=== PATIENT | male | born 1970 | race Caucasian/White ===

== ENCOUNTER 2016-10-26 13:41 | Emergency (ER) | payer OTHER, BC ==
[2016-10-26] MEDS ORDERED: BUPIVACAINE 0.5% PF 30 ML VIAL ONE (15:50)
[2016-10-26] MEDS ORDERED: BUPIVACAINE 0.5% PF 30 ML VIAL SUBQ STA (16:29)
== END 2016-10-26 17:17 | disposition home or self-care (01) ==
DX: S61.220A Laceration with foreign body of right index finger without damage to nail, initial encounter (principal); W29.8XXA Contact with other powered hand tools and household machinery, initial encounter

== ENCOUNTER 2016-11-05 | Emergency (ER) | payer OTHER, BC | END 2016-11-05 08:27 | disposition home or self-care (01) ==

== ENCOUNTER 2016-11-08 09:54 | Emergency (ER) | payer OTHER, BC | END 2016-11-08 12:35 | disposition home or self-care (01) | DX: T81.30XA Disruption of wound, unspecified, initial encounter (principal); Y84.8 Other medical procedures as the cause of abnormal reaction of the patient, or of later complication, without mention of misadventure at the time of the procedure; S61.210D Laceration without foreign body of right index finger without damage to nail, subsequent encounter; X58.XXXD Exposure to other specified factors, subsequent encounter; F17.200 Nicotine dependence, unspecified, uncomplicated ==

== ENCOUNTER 2016-11-22 08:30 | Emergency (ER) | payer OTHER, BC ==
[2016-11-22] MEDS ORDERED: TETANUS/DIPHTHERIA/PERTUSSIS 0.5 ML SYRINGE IM ONE (09:09)
== END 2016-11-22 09:27 | disposition home or self-care (01) ==
DX: S61.210D Laceration without foreign body of right index finger without damage to nail, subsequent encounter (principal); X58.XXXD Exposure to other specified factors, subsequent encounter; Z48.02 Encounter for removal of sutures; F17.200 Nicotine dependence, unspecified, uncomplicated

== ENCOUNTER 2017-03-12 21:44 | Emergency (ER) | payer BC ==
[2017-03-12] MEDS ORDERED: GLUCAGON 1 MG/ML VIAL IVP STA (22:05)
[2017-03-12] MEDS ORDERED: diazePAM INJ 5 MG/ML SYRINGE IVP STA ×2 (22:05→22:38)
[2017-03-12] MEDS ORDERED: SODIUM CHLORIDE 0.9% 1,000 ML IV ONE (22:05)
[2017-03-12] MEDS ORDERED: GLUCAGON 1 MG/ML VIAL ONE (22:08)
[2017-03-12] MEDS ORDERED: diazePAM INJ 5 MG/ML SYRINGE ONE ×2 (22:08→22:49)
[2017-03-12] MEDS ORDERED: WATER FOR INJECTION,STERILE 10 ML ONE (22:08)
[2017-03-12 22:21] LABS: BASOPHILS # (AUTO) 0.1 10^3/uL (0.0-0.1); BASOPHILS % (AUTO) 1.2 %; EOSINOPHILS # (AUTO) 0.3 10^3/uL (0.0-0.7); EOSINOPHILS % (AUTO) 2.6 %; HCT - HEMATOCRIT 48.2 % (42.0-52.0); HGB - HEMOGLOBIN 16.4 g/dL (14.0-18.0); LYMPHOCYTES # (AUTO) 2.5 10^3/uL (1.5-3.5); LYMPHOCYTES % (AUTO) 23.3 %; MEAN CORPUSCULAR HEMOGLOBIN 31.4 pg (27.0-31.0); MEAN CORPUSCULAR VOLUME 92.5 fL (80.0-94.0); MEAN PLATELET VOLUME 7.4 fL (7.4-11.4); MONOCYTES # (AUTO) 0.8 10^3/uL (0.0-1.0); MONOCYTES % (AUTO) 7.3 %; NEUTROPHILS % (AUTO) 65.6 %; RED BLOOD COUNT 5.21 10^6/uL (4.70-6.10); RED CELL DISTRIBUTION WIDTH 13.2 % (12.0-15.0); UNCORRECTED WHITE BLOOD COUNT 10.6 x10^3/uL; WHITE BLOOD COUNT 10.6 x10^3/uL (4.8-10.8)
[2017-03-12 22:32] LABS: BILIRUBIN,TOTAL 0.7 mg/dL (0.2-1.0); CALCIUM 9.2 mg/dL (8.5-10.3); POTASSIUM 3.7 mmol/L (3.5-5.0); TOTAL PROTEIN 7.1 g/dL (6.7-8.2)
--- NOTE | 2017-03-12 22:46 | ED Physician Documentation ---
PD HPI NVD - Stated complaint Stated Complaint: FOOD IN THROAT - Chief complaint Chief Complaint: Abd Pain - History obtained from History obtained from: Patient - History of Present Illness Timing - onset: How many hours ago (1) Timing - duration: Hours (1) Timing - details: Abrupt onset (eating chicken breast he had cut up into a soup and felt it get stuck in esophagus. No history of reflux.) Associated symptoms: Other (food caught in upper esophagus and unable to swallow saliva. Normal breathing.) Contributing factors: Alcohol use. No: Sick contact, Bad food, Travel, Recent antibiotics, Anticoagulated, Diabetes Similar symptoms before: Has not had sx before Recently seen: Not recently seen Review of Systems Constitutional: denies: Fever, Chills Nose: denies: Rhinorrhea / runny nose, Congestion Throat: denies: Sore throat Cardiac: denies: Chest pain / pressure, Palpitations Respiratory: denies: Dyspnea, Cough, Wheezing GI: reports: Other (denies regular heartburn nor reflux.). denies: Abdominal Pain, Vomiting, Diarrhea : denies: Dysuria, Frequency Neurologic: denies: Generalized weakness, Focal weakness, Numbness, Near syncope , Altered mental status, Headache PD PAST MEDICAL HISTORY - Past Medical History Cardiovascular: None Respiratory: None Neuro: None Endocrine/Autoimmune: None GI: None - Past Surgical History Past Surgical History: Yes - Present Medications Home Medications: Ambulatory Orders Medication Instructions Recorded Confirmed No Known Home Medications [No 10/26/16 11/05/16 Known Home Medications] - Allergies Allergies/Adverse Reactions: Allergies Allergy/AdvReac Type Severity Reaction Status Date / Time No Known Drug Allergies Allergy Verified 11/05/16 08:07 - Social History Does the pt smoke?: Yes Smoking Status: Current every day smoker Does the pt drink ETOH?: No Does the pt have substance abuse?: Yes - Family History Family history: reports: Non contributory - Immunizations Immunizations are current?: No Immunizations: TDAP current <10years PD ED PE NORMAL - Vitals Vital signs reviewed: Yes - General General: Alert and oriented X 3, Well developed/nourished, Other (Normal voice and unlabored breathing. he is spitting up clear saliva every few minutes and seems uncomfortable with trying to swallow. ) - HEENT HEENT: Pharynx benign - Neck Neck: Supple, no meningeal sign, No adenopathy - Cardiac Cardiac: RRR, No murmur - Respiratory Respiratory: Clear bilaterally - Abdomen Abdomen: Soft, Non tender - Derm Derm: Normal color, Warm and dry - Extremities Extremities: Normal ROM s pain, No edema, No calf tenderness / cord - Neuro Neuro: Alert and oriented X 3, No motor deficit, Normal speech Results - Vitals Vitals: Vital Signs - 24 hr 03/12/17 03/12/17 21:53 23:57 Temperature 37.0 C Heart Rate 96 87 Respiratory 16 18 Rate Blood Pressure 125/81 H 128/77 O2 Saturation 99 97 Oxygen O2 Source Room air - Labs Labs: Laboratory Tests 03/12/17 03/12/17 22:13 22:13 WBC 10.6 RBC 5.21 Hgb 16.4 Hct 48.2 MCV 92.5 MCH 31.4 H MCHC 34.0 RDW 13.2 Plt Count 234 MPV 7.4 Neut # 7.0 H Lymph # 2.5 [place] # 0.8 Eos # 0.3 Baso # 0.1 Absolute Nucleated RBC 0.00 Nucleated RBCs 0.0 Sodium 140 Potassium 3.7 Chloride 105 Carbon Dioxide 27 Anion Gap 8.0 BUN 13 Creatinine 1.0 Estimated GFR (MDRD) 80 L Glucose 92 Calcium 9.2 Total Bilirubin 0.7 AST 20 ALT 21 Alkaline Phosphatase 60 Total Protein 7.1 Albumin 4.7 Globulin 2.4 Albumin/Globulin Ratio 2.0 Lipase 32 PD MEDICAL DECISION MAKING - ED course Complexity details: re-evaluated patient (no improvement with IV fluids/ meds of Glucagon and Diazepam. Still spitting up clear saliva every few minutes. Normal voice and breathing still. ), d/w care consultant (Dr. Pardo, Surgery front end developer designer, who says she does not do EGD for esophageal FB removal. Refers to GI. Talked with Dr. Terry, GI at [facility]. ) Departure - Departure Disposition: 02 Transfer Acute Care Hosp Clinical Impression: Food impaction of esophagus Qualifiers: Encounter type: initial encounter Qualified Code(s): T18.128A - Food in esophagus causing other injury, initial encounter Condition: Stable Discharge Date/Time: 03/12/17 23:57
[2017-03-13 00:05] VITALS: BP 128/77
== END 2017-03-12 23:57 | disposition short-term general hospital (02) ==
LOC: ED 21:44
DX: T18.128A Food in esophagus causing other injury, initial encounter (principal); X58.XXXA Exposure to other specified factors, initial encounter; F17.200 Nicotine dependence, unspecified, uncomplicated
CPT/HCPCS: 36415; 80053; 83690; 85025; 96374; 96375; 96376; 99283; 99284

== ENCOUNTER 2017-03-13 | Outpatient (CLI) | payer BC | END 2017-03-13 00:01 | disposition short-term general hospital (02) | LOC: EMS | PROVIDERS: ATTEND Surgery | DX: T18.128A Food in esophagus causing other injury, initial encounter (principal); R13.10 Dysphagia, unspecified; X58.XXXA Exposure to other specified factors, initial encounter | CPT/HCPCS: A0425; A0428 ==

== ENCOUNTER 2017-05-07 20:09 | Emergency (ER) | payer BC ==
[2017-05-07 20:18] VITALS: BP 110/72
== END 2017-05-07 20:35 | disposition left against medical advice (07) ==
LOC: ED 20:09
DX: T17.228A Food in pharynx causing other injury, initial encounter (principal); X58.XXXA Exposure to other specified factors, initial encounter; Z53.21 Procedure and treatment not carried out due to patient leaving prior to being seen by health care provider

== ENCOUNTER 2017-08-31 16:03 | Outpatient (CLI) | payer BC | END 2017-08-31 16:04 | disposition critical access hospital (66) | LOC: EMS 16:03 | PROVIDERS: ATTEND Surgery | DX: M25.511 Pain in right shoulder (principal); V58.0XXA Driver of pick-up truck or van injured in noncollision transport accident in nontraffic accident, initial encounter; Y92.410 Unspecified street and highway as the place of occurrence of the external cause | CPT/HCPCS: A0425; A0429 ==

== ENCOUNTER 2017-08-31 16:18 | Emergency (ER) | payer BC ==
[2017-08-31 16:25] VITALS: BP 113/80
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
== END 2017-08-31 17:41 | disposition home or self-care (01) ==
LOC: EDUNIT# → ED 16:18
DX: S00.01XA Abrasion of scalp, initial encounter (principal); S40.011A Contusion of right shoulder, initial encounter; V58.5XXA Driver of pick-up truck or van injured in noncollision transport accident in traffic accident, initial encounter; Y92.488 Other paved roadways as the place of occurrence of the external cause; Y99.0 Civilian activity done for income or pay; F17.200 Nicotine dependence, unspecified, uncomplicated
CPT/HCPCS: 99283

== ENCOUNTER 2020-03-18 14:53 | Emergency (ER) | payer BC, OTHER ==
--- NOTE | 2020-03-18 17:18 | Ultrasound Report ---
PROCEDURE: Testicle w/Doppler Limited INDICATIONS: L testicle pain TECHNIQUE: Real-time scanning was performed of the scrotum and testicles, with image documentation. Color and p ulse Doppler interrogation was performed of both testicles. COMPARISON: None. FINDINGS: Right: Testicle is normal in size at 5.3 x 2.8 x 3.5 cm, and homogenous in echotexture. Epididymis is normal in overall size and morphology. No hydrocele or varicoceles. Overlying scrotal skin is no rmal in thickness. Left: Testicle is normal in size at 6.1 x 2.8 x 3.1 cm, and homogeneous in echotexture. Epididymis is normal in overall size and morphology. 5 x 7 x 7 mm left epididymal cyst is seen. Small left-sided hydrocele is noted. No varicoceles. Overlying scrotal skin is normal in thickness. Doppler: Color and pulse Doppler demonstrate normal and symmetric arterial flow in right testes. Sli ghtly increased left testicular arterial flow is noted.. IMPRESSION: 1. No discrete testicular lesion. Slightly increased left testicular arterial flow concerning for mil d orchitis. No evidence of testicular torsion. 2. Small amount of left-sided hydrocele. Tiny left epididymal cyst. Reviewed by: Rob Velásquez MD on 03/18/2020 5:17 PM PDT Approved by: Rob Velásquez MD on 03/18/2020 5:17 PM PDT Station ID: [id number]
[2020-03-18] MEDS ORDERED: SODIUM CHLORIDE 0.9% 1,000 ML IV STA (17:22)
[2020-03-18] MEDS ORDERED: KETOROLAC 30 MG/ML VIAL IVP STA (17:22)
--- NOTE | 2020-03-18 17:24 | ED Physician Documentation ---
PD HPI MALE - Stated complaint Stated Complaint: MALE - Chief complaint Chief Complaint: Abd Pain - History obtained from History obtained from: Patient - History of Present Illness Timing - onset: How many days ago (4) Timing - duration: Days (4) Timing - details: Gradual onset, Still present Associated symptoms: Testiclar pain. No: Genital sore / lesion, Scrotal swelling Similar symptoms before: Has not had sx before Recently seen: Not recently seen - Additional information Additional information: 49-year-old male developed left testicular pain about 4 days ago and he has had this pain coming and going and he is now come to the emergency department when his pain is much worse today. He feels like the pain is going all the way up into his kidney on the left side. He is not had any vomiting with this he is not had any fever. Review of Systems Constitutional: denies: Fever Eyes: denies: Decreased vision Ears: denies: Ear pain Nose: denies: Rhinorrhea / runny nose, Congestion Throat: denies: Sore throat Cardiac: denies: Chest pain / pressure, Palpitations Respiratory: denies: Dyspnea, Cough GI: reports: Abdominal Pain. denies: Nausea, Vomiting : denies: Dysuria, Frequency, Discharge Skin: denies: Rash Musculoskeletal: reports: Back pain. denies: Neck pain, Extremity pain PD PAST MEDICAL HISTORY - Past Medical History Cardiovascular: None Respiratory: None Endocrine/Autoimmune: None GI: None - Past Surgical History Past Surgical History: Yes - Present Medications Home Medications: Ambulatory Orders Medication Instructions Recorded Confirmed No Known Home Medications 10/26/16 05/07/17 - Allergies Allergies/Adverse Reactions: Allergies Allergy/AdvReac Type Severity Reaction Status Date / Time No Known Drug Allergies Allergy Verified 03/18/20 14:57 - Social History Does the pt smoke?: Yes Smoking Status: Current every day smoker Does the pt drink ETOH?: No Does the pt have substance abuse?: Yes - Immunizations Immunizations are current?: No Immunizations: TDAP current <10years PD ED PE NORMAL - Vitals Vital signs reviewed: Yes (normal ) - General General: Alert and oriented X 3, No acute distress, Well developed/nourished - HEENT HEENT: Atraumatic, PERRL, EOMI - Neck Neck: Supple, no meningeal sign, No bony TTP - Cardiac Cardiac: RRR, No murmur - Respiratory Respiratory: No respiratory distress, Clear bilaterally - Abdomen Abdomen: Normal bowel sounds, Soft, Non tender, Non distended, No organomegaly - Back Back: No CVA TTP, No spinal TTP - Derm Derm: Normal color, Warm and dry, No rash - Extremities Extremities: No deformity, No edema, No calf tenderness / cord - Neuro Neuro: Alert and oriented X 3, bass mechanism maker 2-12 intact, No motor deficit, No sensory deficit, Normal speech Eye Opening: Spontaneous Motor: Obeys Commands Verbal: Oriented GCS Score: 15 - Psych Psych: Normal mood, Normal affect Results - Vitals Vitals: Vital Signs - 24 hr 03/18/20 03/18/20 14:57 17:00 Temperature 36.6 C Heart Rate 78 58 L Respiratory 16 20 Rate Blood Pressure 114/67 136/73 H O2 Saturation 95 97 Oxygen O2 Source Room air - Labs Labs: Laboratory Tests 03/18/20 03/18/20 03/18/20 17:43 17:48 17:48 WBC 7.6 RBC 5.31 Hgb 16.2 Hct 49.5 MCV 93.2 MCH 30.5 MCHC 32.7 RDW 13.1 Plt Count 270 MPV 8.9 Neut # (Auto) 4.7 Lymph # (Auto) 2.1 [place] # (Auto) 0.6 Eos # (Auto) 0.2 Baso # (Auto) 0.1 Absolute Nucleated RBC 0.00 Nucleated RBC % 0.0 Sodium 139 Potassium 4.0 Chloride 100 L Carbon Dioxide 27 Anion Gap 12.0 BUN 12 Creatinine 0.9 Estimated GFR (MDRD) 90 Glucose 88 Calcium 9.3 Total Bilirubin 0.9 AST 18 ALT 17 Alkaline Phosphatase 49 Total Protein 7.0 Albumin 5.1 Globulin 1.9 L Albumin/Globulin Ratio 2.7 H Lipase 31 Urine Color YELLOW Urine Clarity CLEAR Urine pH 7.0 Ur Specific [place] 1.015 Urine Protein NEGATIVE Urine Glucose (UA) NEGATIVE Urine Ketones TRACE Urine Occult Blood NEGATIVE Urine Nitrite NEGATIVE Urine Bilirubin NEGATIVE Urine Urobilinogen 0.2 (NORMAL) Ur Leukocyte Esterase NEGATIVE Ur Microscopic Review NOT INDICATED Urine Culture Comments NOT INDICATED - Rads (name of study) CT ab/pel w/o Radiology: Prelim report reviewed (Impression: CT abdomen and pelvis without acute abnormalities to explain patient's left-sided pain. Specifically, no evidence for urolithiasis or obstructive uropathy.), EMP read indepedently, See rad report scrotal u/s Radiology: Prelim report reviewed (Impression: 1. No discrete testicular lesion. Slightly increased left testicular arterial flow concerning for mild orchitis. No evidence of testicular torsion. 2. Small amount of left-sided hydrocele. Tiny left epididymal cyst.), EMP read indepedently, See rad report Procedures - Bedside sono Bedside sono by EMP: With use bedside ultrasound the left kidney is imaged it is sonographically nontender. There is evidence of mild hydronephrosis. PD MEDICAL DECISION MAKING - ED course Complexity details: reviewed results, re-evaluated patient, considered differential, d/w patient ED course: 49-year-old male with a chief complaint of left testicular pain has the feeling that he has pain going all the way up into his kidney as well. He has had pain for the past 3 days and when he arrives to the emergency department his chief complaint is testicular pain. An ultrasound was ordered from the waiting room and this is a negative study for torsion. At the time of my evaluation the patient's pain is improved but not resolved and I did a bedside ultrasound which showed some mild hydronephrosis and ordered a CT scan of the abdomen pelvis with a liter of saline and 30 mg of Toradol. Patient had further resolution of his pain and CT scan is without evidence of stone. I reevaluated the patient's retroperitoneum with the ultrasound and saw that indeed the amount of hydro-was less than it was on the prior exam. I suspect he has passed a stone. Departure - Departure Disposition: 01 Home, Self Care Clinical Impression: Ureterolithiasis Condition: Stable Instructions: ED Stone Renal Passed Follow-Up: [facility] [Provider Group]
[2020-03-18 18:00] LABS: BASOPHILS # (AUTO) 0.1 10^3/uL (0.0-0.1); EOSINOPHILS # (AUTO) 0.2 10^3/uL (0.0-0.7); EOSINOPHILS % (AUTO) 2.6 %; HGB - HEMOGLOBIN 16.2 g/dL (14.0-18.0); LYMPHOCYTES # (AUTO) 2.1 10^3/uL (1.5-3.5); LYMPHOCYTES % (AUTO) 27.3 %; MEAN CORPUSCULAR HEMOGLOBIN 30.5 pg (27.0-31.0); MEAN CORPUSCULAR HGB CONC 32.7 g/dL (32.0-36.0); MEAN CORPUSCULAR VOLUME 93.2 fL (80.0-94.0); MEAN PLATELET VOLUME 8.9 fL (7.4-11.4); MONOCYTES # (AUTO) 0.6 10^3/uL (0.0-1.0); MONOCYTES % (AUTO) 7.6 %; NEUTROPHILS # (AUTO) 4.7 10^3/uL (1.5-6.6); NEUTROPHILS % (AUTO) 61.4 %; PLT - PLATELET COUNT 270 10^3/uL (130-450); RED BLOOD COUNT 5.31 10^6/uL (4.70-6.10); RED CELL DISTRIBUTION WIDTH 13.1 % (12.0-15.0); WHITE BLOOD COUNT 7.6 x10^3/uL (4.8-10.8)
[2020-03-18 18:10] LABS: BILIRUBIN,URINE NEGATIVE (NEGATIVE); GLUCOSE, URINE (UA) NEGATIVE (NEGATIVE); KETONES,URINE (UA) TRACE mg/dL (NEGATIVE); LEUKOCYTE ESTERASE, URINE NEGATIVE (NEGATIVE); NITRITE,URINE NEGATIVE (NEGATIVE); OCCULT BLOOD,URINE NEGATIVE (NEGATIVE); PROTEIN,URINE NEGATIVE (NEGATIVE); UROBILINOGEN,URINE 0.2 (NORMAL) E.U./dL (NORMAL)
[2020-03-18 18:11] LABS: CLARITY,URINE CLEAR (CLEAR)
--- NOTE | 2020-03-18 18:13 | CT Report ---
PROCEDURE: Abdomen/Pelvis WO INDICATIONS: left flank pain TECHNIQUE: Noncontrast 5 mm thick sections acquired from the diaphragms to the symphysis. 5 mm coronal and sagi ttal reformats were then performed. For radiation dose reduction, the following was used: automated exposure control, adjustment of mA and/or kV according to patient size. COMPARISON: None. FINDINGS: Image quality: Excellent. ABDOMEN: Lung bases: Lung bases are clear. Heart size is normal. Solid organs: Liver and spleen are normal in size. Gallbladder is unremarkable Pancreas is normal in contours. No adrenal nodules. Kidneys are normal in size, without hydronephrosis or nephrolithia sis. Peritoneum and bowel: Unenhanced bowel loops demonstrate normal wall thickness and caliber. No free fluid or air. Appendix is not definitively visualized; however, no secondary findings for acute inf lammation are noted in the right lower quadrant. Nodes and vessels: No retroperitoneal or mesenteric adenopathy by size criteria. Aorta and inferior vena cava are normal in caliber. Miscellaneous: No ventral hernias. PELVIS: Genitourinary: Bladder wall thickness is normal. Miscellaneous: No inguinal hernias or adenopathy. Bones: No suspicious bony lesions. No acute vertebral body compression fractures. Multilevel lumba r spondylosis. IMPRESSION: CT abdomen and pelvis without acute abnormalities to explain patient's left-sided pain. Specifically, no evidence for urolithiasis or obstructive uropathy. Reviewed by: Angel Kelley MD on 03/18/2020 6:11 PM PDT Approved by: Angel Kelley MD on 03/18/2020 6:11 PM PDT Station ID: [id number]
[2020-03-18 18:17] LABS: ALBUMIN 5.1 g/dL (3.2-5.5); ALBUMIN/GLOBULIN RATIO 2.7 (1.0-2.2); BILIRUBIN,TOTAL 0.9 mg/dL (0.2-1.0); CALCIUM 9.3 mg/dL (8.5-10.3); CREATININE 0.9 mg/dL (0.6-1.2)
[2020-03-18 18:41] VITALS: BP 122/79
== END 2020-03-18 18:40 | disposition home or self-care (01) ==
LOC: ED 14:53
DX: N13.2 Hydronephrosis with renal and ureteral calculous obstruction (principal); N43.3 Hydrocele, unspecified; N50.3 Cyst of epididymis; F17.200 Nicotine dependence, unspecified, uncomplicated
CPT/HCPCS: 36415; 74176; 76870; 80053; 81001; 81003; 83690; 85025; 87086; 93976; 96361; 96374; 99284

== ENCOUNTER 2020-08-13 07:00 | Outpatient (CLI) | payer BC | END 2020-08-13 23:59 | disposition home or self-care (01) | LOC: COV 07:00 | PROVIDERS: ATTEND Family Medicine | DX: R53.83 Other fatigue (principal); R68.83 Chills (without fever); R09.81 Nasal congestion; J34.89 Other specified disorders of nose and nasal sinuses; Z20.828 Contact with and (suspected) exposure to other viral communicable diseases ==